=== PATIENT | female | born 1990 | race Two or more races ===

== ENCOUNTER 2024-09-09 02:45 | Emergency (ER) | payer MEDICAID, SELFPAY ==
[2024-09-09 02:45] VITALS: BMI 32.5
[2024-09-09 02:52] VITALS: BP 114/70; PULSE 88; RESP 16; TEMP 36.6; O2SAT 96
--- NOTE | 2024-09-09 03:05 | PD.EDURI ---
Upper Respiratory Inf. RME/HPI General Chief Complaint: Dental/Oral/Throat Stated Complaint: BILATERAL EAR PAIN, SORE THROAT Time Seen by Provider: 09/09/24 02:59 Arrival date/time: 09/09/24 02:45 34F with history of asthma presents to ED with several days of sore throat and bilateral ear pain. Patient denies cough. Limitations: no limitations Related Data Previous Rx's ?Medication ?Instructions ?Recorded hydroxyzine HCl 50 mg tablet 50 mg PO QID anxiety/ panic attack 02/24/19 #20 tabs ibuprofen 800 mg tablet 800 mg PO Q6H PRN pain #30 tabs 02/24/19 azithromycin 500 mg tablet See Rx Instructions PO .COMPLEX #6 07/15/19 tabs promethazine-DM 6.25 mg-15 mg/5 mL 5 ml PO Q6H PRN cough #473 mL 07/15/19 oral syrup cyclobenzaprine 10 mg tablet 10 mg PO TID PRN muscle spasm #20 09/06/20 tabs ibuprofen 800 mg tablet 800 mg PO TID PRN pain #30 tabs 09/06/20 ondansetron 4 mg disintegrating 4 mg PO Q4H PRN nausea and 11/16/20 tablet vomiting #10 tabs ibuprofen 600 mg tablet 600 mg PO Q8H PRN pain #30 tabs 08/28/21 albuterol sulfate 90 mcg/actuation 90 mcg inhalation Q6H PRN 07/18/22 breath activated powder shortness of breath or wheezing #1 inhaler,sensor (Proair Digihaler) ea prednisone 20 mg tablet See Taper PO BID #15 tabs 07/18/22 ibuprofen 600 mg tablet 600 mg PO Q6H #30 tabs 01/04/23 ondansetron 4 mg disintegrating 4 mg PO Q8H PRN nausea and 01/04/23 tablet vomiting #10 tabs acetaminophen 500 mg capsule 1,000 mg (2 x 500 mg) PO Q8HR PRN 05/21/23 pain #30 caps ibuprofen 800 mg tablet 800 mg PO TID PRN pain #30 tabs 05/21/23 ondansetron 4 mg disintegrating 4 mg PO Q8H PRN nausea and 12/11/23 tablet vomiting #20 tabs Allergies Allergy/AdvReac Type Severity Reaction Status Date / Time No Known Allergies Allergy Verified 05/21/23 13:04 Review of Systems Review of Systems Systems Reviewed: All systems reviewed, normal except as documented Constitutional Constitutional: Reports system reviewed and no additional complaints, except as documented, Denies fever(s) and Denies headache(s) ENT Ears, Nose, Mouth, and Throat: Reports as per HPI, Denies disequilibrium, Reports otalgia, Denies headache(s) and Reports sore throat Cardiovascular Cardiovascular: Reports system reviewed and no additional complaints, except as documented, Denies chest pain and Denies dyspnea Respiratory Respiratory: Reports system reviewed and no additional complaints, except as documented, Denies cough and Denies dyspnea Gastrointestinal Gastrointestinal: Reports system reviewed and no additional complaints, except as documented, Denies abdominal pain, Denies nausea and Denies vomiting Neurologic Neurologic: Reports system reviewed and no additional complaints, except as documented, Denies confusion, Denies disequilibrium and Denies headache(s) Psychiatric Psychiatric: Denies confusion Past Medical History Past Medical History NEUROLOGIC: Negative Neurological Disorders CARDIAC: Negative Cardiac Disorders RESPIRATORY: Positive Asthma GASTROINTESTINAL: Negative Gastrointestinal Disorders, Hepatitis or Colorectal Cancer GENITOURINARY: Negative Genitourinary Disorders or Prostate Cancer REPRODUCTIVE: Negative Breast Cancer, Genital Herpes, Gonorrhea, Syphilis or Testicular Cancer MUSCULOSKELETAL: Negative Musculoskeletal Disorders, Bone Cancer or Carpal Tunnel Syndrome ENDOCRINE: Negative Endocrine Disorders HEMATOLOGIC: Negative Blood Disorders OTHER HISTORY: Positive Hospitalization (CHILDBIRTH); Negative Autoimmune Disease, Blood Transfusions, Blood Transfusion Reaction, Anesthesia Reactions, Organ Transplant, Chemotherapy, Radiation Therapy, Hyperbaric Therapy, MRSA, VRSA, Vancomycin-Resistant Enterococci, Human Immunodeficiency Virus (HIV), Chicken Pox, Measles, Mumps, Rubella ([place] Measles), Pertussis, Clostridium Difficile, Breast Cancer, Cervical Cancer, Colorectal Cancer, Lung Cancer, Ovarian Cancer, Prostate Cancer or Testicular Cancer Family History FAMILY HISTORY: Negative Family Psychiatric Problems, Family Respiratory Disorders, Family Cardiac Disorders, Family Gastrointestinal Problems, Family Cancer, Family Surgery or Family Anesthesia Reaction Surgical History SURGICAL: Positive Abdominal Surgery ( SECTION), Tubal Ligation and Section; Negative Cardiac Surgery, Endocrine Surgery, Ear Surgery, Nephrectomy, Joint Replacement, Amputation, Open Reduction Internal Fixation, Arthroscopy, Neurologic Surgery, Mastectomy, Lumpectomy, Hysterectomy or Organ Transplant Social History SMOKING STATUS: Never smoker SECOND HAND EXPOSURE: No SUBSTANCE USE: does not use ED Exam General Limitations: Present no limitations General appearance: Present alert and in no apparent distress Head Head exam: Present atraumatic Eye Eye exam: Present normal appearance, PERRL and EOMI ENT ENT exam: Present normal oropharynx and mucous membranes moist Expanded ENT Exam TM/Canal exam: Right TM: effusion (minimal) Neck Neck exam: Present normal inspection, full ROM and trachea midline Chest Chest inspection: Present normal inspection and symmetric chest wall rise Respiratory Respiratory exam: Present normal lung sounds bilaterally Cardiovascular Cardiovascular exam: Present regular rate, normal rhythm and normal heart sounds Abdominal Exam Abdominal exam: Present soft and normal bowel sounds Extremities Exam Extremities exam: Present normal inspection and full ROM Back Exam Back exam: Present normal inspection and full ROM Neurological Exam Neurological exam: Present alert, oriented X3 and CN II-XII intact Psychiatric Psychiatric exam: Present normal affect and normal mood Skin Skin exam: Present warm, dry, intact and normal color Course Quality Measures none Orders Category Date Time Status Strep A Rapid Stat Lab 09/09/24 03:02 Completed Dexamethasone Inj [Decadron Inj] Med 09/09/24 02:59 Discontinued 10 mg PO X1 ONE Vital Signs Vital signs: Vital Signs Temperature 97.9 F 09/09/24 02:52 Pulse Rate 88 09/09/24 02:52 Respiratory Rate 16 09/09/24 02:52 Blood Pressure 114/70 09/09/24 02:52 Pulse Oximetry (%) 96 09/09/24 02:52 Oxygen Delivery Method Room Air 09/09/24 02:52 O2 at 96% on RA and WNLs Upper Respiratory Infection MDM Narrative MDM Narrative:: 34F with history of asthma presents to ED with several days of sore throat and bilateral ear pain. Patient denies cough. Physical exam reveals clear oropharynx. Minimal R ear effusion. L ear normal. Patient is afebrile, calm, and alert. Cerumen impaction remained after irrigation. Swabs neg. Patient would like ABX for possible OM caused by likely viral URI. Patient data External records reviewed:: [facility] previous records Clinical information provided by:: patient Social determinants that could affect healthcare access:: none Patient has the following chronic illnesses:: asthma How is presenting disease/condition affected by chronic disease/condition?: exacerbated by Evaluation data The following diagnostics were reviewed and interpreted by me:: lab results Lab and/or radiology exams considered but not ordered:: ordered Interpretation Summary: above Medications / Prescriptions Medications or Prescriptions considered but not ordered:: ordered Medication administrations:: Medication Administration History Discontinued Medications Dexamethasone Sodium Phosphate (Dexamethasone Sod Phos Inj 10 Mg/Ml Vial) 10 mg PO X1 ONE Stop: 09/09/24 03:00 Last Admin: 09/09/24 03:08 Dose: 10 mg Documented By: Comments: PO above Consultations Consultation(s) initiated? (list below): No Diagnosis Upper Respiratory Differential Diagnosis: upper respiratory infection, croup, otitis media, sinusitis, viral infection, bronchitis, influenza, pharyngitis and other (ear pain) Most likely diagnosis given after review of the tests above:: URI and ear pain Admission Indicated Admission indicated?: not indicated Admission Request Was there a request for admission?: No Disposition Plan Disposition Plan: Discharge Discharge Attestation Discharge Attestation: The patient and all family members were given an opportunity to ask questions and understood the discharge instructions. Discharge instructions specifically effects, indications for sooner follow up or return to the emergency department, and the expected course of current diagnosis. Patient condition: Stable Discharge Plan Plan Patient Disposition: HOME (Self Care) Disposition Comment: Stable Prescriptions/Referrals Prescriptions/Med Rec: No Action ibuprofen 800 mg tablet 800 mg PO Q6H PRN (Reason: pain) Qty: 30 0RF hydroxyzine HCl 50 mg tablet 50 mg PO QID Qty: 20 0RF ondansetron 4 mg tablet,disintegrating 4 mg PO Q4H PRN (Reason: nausea and vomiting) Qty: 10 0RF Rx Instructions: 1st dose 1-2 hr before radiation ibuprofen 600 mg tablet 600 mg PO Q8H PRN (Reason: pain) Qty: 30 0RF azithromycin 500 mg tablet See Rx Instructions .ROUTE .COMPLEX Qty: 6 0RF Rx Instructions: take 500 mg today (day 1), then 250 mg for 4 days (days 2-5) promethazine-DM 6.25-15 mg/5 mL syrup 5 ml PO Q6H PRN (Reason: cough) Qty: 473 0RF ibuprofen 800 mg tablet 800 mg PO TID PRN (Reason: pain) Qty: 30 0RF cyclobenzaprine 10 mg tablet 10 mg PO TID PRN (Reason: muscle spasm) Qty: 20 0RF Proair Digihaler 90 mcg/actuation aero powdr breath act w/sensor 90 mcg inhalation Q6H PRN (Reason: shortness of breath or wheezing) Qty: 1 0RF prednisone 20 mg tablet See Taper PO BID Qty: 15 0RF Taper: Prednisone Taper 60 mg DAILY for 3 Days and 0 Hour ibuprofen 600 mg tablet 600 mg PO Q6H Qty: 30 0RF ondansetron 4 mg tablet,disintegrating 4 mg PO Q8H PRN (Reason: nausea and vomiting) Qty: 10 0RF ibuprofen 800 mg tablet 800 mg PO TID PRN (Reason: pain) Qty: 30 0RF acetaminophen 500 mg capsule 1,000 mg PO Q8HR PRN (Reason: pain) Qty: 30 0RF ondansetron 4 mg tablet,disintegrating 4 mg PO Q8H PRN (Reason: nausea and vomiting) Qty: 20 0RF Problem List Clinical Impression: Acute serous otitis media Patient/Caregiver Discharge Instructions Education Materials: ED Earache Without Infection (Adult) Additional Instructions: Please follow-up with PCP within 24-48 hours and return immediately if symptoms worsen. Ibuprofen/Tylenol can be used simultaneously for greater fever/pain control. Print Language: Bengali Stand Alone Forms: Patient Portal Info Letter MARGARITA/YENNI Supervising Physician MARGARITA/YENNI Supervising Physician: Dr. Lunsford
[2024-09-09] MEDS: DEXAMETHASONE SOD PHOS INJ 10 MG/ML VIAL PO (03:08)
[2024-09-09 03:33] LABS: Strep A Rapid Negative (Negative)
--- NOTE | 2024-09-09 04:25 | PD.EDADDENDU ---
Emergency Room Addendum Addendum Narrative: Last line of MDM incorrect. Should be: Strep neg. Steroids improved symptoms, which are likely allergic in nature, especially given history of asthma. Also incorrect is, most likely diagnosis. Should be: acute serous otitis media.
== END 2024-09-09 04:15 | disposition home or self-care (01) ==
LOC: SERX 04:37
PROVIDERS: Physician Assistant; Emergency Provider Emergency Medicine; PCP Family Medicine
DX: H65.03 Acute serous otitis media, bilateral (principal); J45.909 Unspecified asthma, uncomplicated
CPT/HCPCS: 87651; 99283; J1100